=== PATIENT | male | born 1985 | race Caucasian/White ===

== ENCOUNTER 2024-01-05 22:32 | Emergency (ER) | payer OTHER ==
[2024-01-05] MEDS: Ibuprofen 400 MG Tab PO ONE (22:54)
[2024-01-05] MEDS: Ondansetron 4 MG Tab.DIS PO ONE (22:54)
[2024-01-05] MEDS: Acetaminophen 500 MG Tab PO ONE (22:55)
[2024-01-05 23:23] LABS: CORONAVIRUS COVID-19 NAA NEGATIVE (NEGATIVE); INFLUENZA A NAA NEGATIVE (NEGATIVE); INFLUENZA B NAA NEGATIVE (NEGATIVE); RESPIRATORY SYNCYTIAL VIR NAA NEGATIVE (NEGATIVE)
[2024-01-05] MEDS: Doxycycline 100 MG Cap PO ONE (23:36)
[2024-01-05] MEDS: Amoxicillin/Clavulanate K 875-125 MG Tab PO ONE (23:36)
== END 2024-01-05 23:57 | disposition home or self-care (01) ==
LOC: MW.ED 22:32
DX: J18.9 Pneumonia, unspecified organism (principal); Z75.8 Other problems related to medical facilities and other health care
CPT/HCPCS: 0241U; 71046; 99284; A9270